=== PATIENT | male | born 1980 | race Caucasian/White ===

== ENCOUNTER 2023-05-02 17:32 | Emergency (ER) | payer OTHER, BC ==
[2023-05-02] MEDS ORDERED: Lidocaine 1% with EPINEPHrine 1:100,000 20 ML MDV INJECT ONE (20:47)
[2023-05-02] MEDS ORDERED: Diphtheria,Pertussis(Acell),Tetanus Vaccine 0.5 ML Syringe IM ONE (20:47)
[2023-05-03 02:09] VITALS: BP 132/78; PULSE 78
== END 2023-05-02 21:15 | disposition home or self-care (01) ==
LOC: MW.ED 17:32
DX: S41.111A Laceration without foreign body of right upper arm, initial encounter (principal); E66.9 Obesity, unspecified; Z68.35 Body mass index [BMI] 35.0-35.9, adult; Z23 Encounter for immunization; W26.8XXA Contact with other sharp object(s), not elsewhere classified, initial encounter
CPT/HCPCS: 12002; 90471; 90715; 99282-25; 99283; J3490